=== PATIENT | male | born 1935 | race Caucasian/White ===

== ENCOUNTER → 2016-12-03 | Outpatient (CLI) | payer MEDICARE, OTHER ==
[~2016-12-03] MED LIST: BACTRIM DS DPS1 TAB PO; CASODEX50 MG PO; LANOXIN DPS0.125 MG PO; LOPRESSOR DPS50 MG PO
== END | disposition home or self-care (01) ==
LOC: RAD.S 07:37
DX: C61 Malignant neoplasm of prostate (principal)